=== PATIENT | female | born 1990 | race Caucasian/White ===

== ENCOUNTER 2020-01-29 21:59 | Inpatient (IN) ==
[2020-01-29] MEDS ORDERED: LACTATED RINGERS 500 ML IV PRN (22:21)
[2020-01-29] MEDS ORDERED: ONDANSETRON 4 MG/2 ML VIAL IV PRN (22:21)
[2020-01-29] MEDS ORDERED: MEPERIDINE 50 MG/1 ML VIAL IV PRN (22:21)
[2020-01-29] MEDS ORDERED: BUTORPHANOL 2 MG/ML VIAL IV PRN (22:21)
[2020-01-29 22:44] LABS: Basophils % 0.2 % (0.0-0.8); Eosinophils # 0.1 10*3/uL (0.0-0.87); Eosinophils % 0.9 % (0.00-10.9); Hematocrit 33.5 VOL% (35.7-47.0); Hemoglobin 11.1 GM/DL (12.0-16.0); Immature Granulocytes % 0.6 %; Immature Granulocytes Absolute 0.06 #; Lymphocytes # 1.8 10*3/uL (1.4-4.0); Lymphocytes % 19.5 % (21.3-54.2); Mean Corpuscular HGB Conc 33.1 GM/DL (32-36); Mean Corpuscular Volume 92.8 FL (87-102); Monocytes % 8.2 % (1.7-12.7); Neutrophils % 70.6 % (38.7-73.9); Platelet Count 203 T/CUMM (130-400); Red Blood Count 3.61 MC/CUMM (3.8-5.5); Red Cell Distribution Width 13.3 % (9.3-17.3); White Blood Count 9.3 T/CUMM (4-12)
[2020-01-29 23:13] LABS: Alanine Aminotransferase 12 U/L (13-56); Albumin 2.6 G/DL (3.4-5.0); Alkaline Phosphatase 124 U/L (45-117); Aspartate Amino Transferase 12 U/L (0-37); Bilirubin,Total < 0.39 MG/DL (0.2-1.0); Blood Urea Nitrogen 10 MG/DL (7-18); Calcium 8.8 MG/DL (8.5-10.1); Estimated Glom Filtration Rate 129 ML/MIN; Glucose 91 MG/DL (74-106); Osmolality,Calculated 271.8 MOS/KG (273-304); Total Protein 6.5 G/DL (6.4-8.3)
[2020-01-30] MEDS ORDERED: CLINDAMYCIN INJ 900 MG in PREMIX 1 EACH IV SCH (04:00)
[2020-01-30] MEDS: LACTATED RINGERS 1,000 ML IV SCH ×2 (04:20→04:30)
[2020-01-30] MEDS ORDERED: LACTATED RINGERS 1,000 ML IV ONE ×2 (08:30→09:20)
[2020-01-30] MEDS ORDERED: TERBUTALINE 1 MG/1 ML VIAL SUBCUT ONE ×2 (08:30→11:36)
[2020-01-30] MEDS ORDERED: CITRIC ACID/SODIUM CITRATE 30 ML UDCUP PO ONE (08:30)
[2020-01-30] MEDS ORDERED: FAMOTIDINE 20 MG/2 ML VIAL IV ONE (08:30)
[2020-01-30] MEDS ORDERED: TERBUTALINE 1 MG/1 ML VIAL ONE (08:32)
[2020-01-30] MEDS ORDERED: TRANEXAMIC ACID 1,000 MG/10 ML VIAL ONE (08:33)
[2020-01-30] MEDS ORDERED: miSOPROStoL 200 MCG TABLET ONE (08:33)
[2020-01-30] MEDS ORDERED: OXYTOCIN/LR 20 UNIT/1,000 ML BAG IV ONE ×2 (08:34→12:22)
[2020-01-30] MEDS ORDERED: CARBOPROST TROMETHAMINE 250 MCG/ML AMP IM ONE (08:34)
[2020-01-30] MEDS ORDERED: METHYLERGONOVINE 0.2 MG/1 ML AMP ONE (08:34)
[2020-01-30] MEDS ORDERED: ePHEDrine 50 MG/ML VIAL IV PRN (09:20)
[2020-01-30] MEDS ORDERED: diphenhydrAMINE 50 MG/1 ML VIAL IV PRN ×2 (09:20)
[2020-01-30] MEDS ORDERED: NALOXONE 0.4 MG/ML VIAL IV PRN (09:20)
[2020-01-30] MEDS ORDERED: fentaNYL 2 MCG/ROPIV 0.2% EPID 100 ML EPIDURAL SCH (09:30)
[2020-01-30] MEDS ORDERED: OXYTOCIN/LR 20 UNIT/1,000 ML BAG IV SCH (09:30)
[2020-01-30] MEDS ORDERED: LIDOCAINE MPF 2% /EPI 20 ML VIAL ONE (11:32)
[2020-01-30] MEDS ORDERED: PHENYLEPHRINE 1 MG/10 ML SYRINGE IV ONE (11:32)
[2020-01-30] MEDS ORDERED: OXYTOCIN 10 UNIT/ML VIAL ONE (11:47)
[2020-01-30 12:05] LABS: Cord Venous Blood HCO3 18.4 MMOL/L; Cord Venous Blood PCO2 55.4 MMHG; Cord Venous Blood PO2 22.6
[2020-01-30 12:18] LABS: Bilirubin,Urine Negative (Negative); Blood, Urine Negative (Negative); Glucose,Urine (UA) Negative (Negative); Ketones,Urine 5 mg/dL (Negative); Nitrite,Urine Negative (Negative); Protein,Urine Negative; Squamous Epithelial Cell,Urine Occasional /HPF (0-10); Urine Appearance CLEAR (Clear); Urine Color Straw (Yellow); Urine Specific Gravity 1.006 (1.001-1.035); Urine Urobilinogen < 2.0 EU/DL (0.2-1.0)
[2020-01-30] MEDS ORDERED: BENZOCAINE 20%/MENTHOL 0.5% SPRAY 56 GM CAN TOP PRN (12:22)
[2020-01-30] MEDS ORDERED: oxyCODONE/ACETAMINOPHEN 5-325 MG TABLET PO PRN (12:22)
[2020-01-30] MEDS ORDERED: ACETAMINOPHEN 325 MG TABLET PO PRN (12:22)
[2020-01-30] MEDS ORDERED: ONDANSETRON 4 MG/2 ML VIAL IV PRN (12:22)
[2020-01-30] MEDS ORDERED: MEASLES/MUMPS/RUBELLA VACCINE 0.5 ML VIAL SUBCUT ONE (12:22)
[2020-01-30] MEDS ORDERED: DIPH/TET/ACEL PERT BOOSTER VACCINE 0.5 ML VIAL IM ONE (12:22)
[2020-01-30] MEDS ORDERED: BISACODYL 10 MG SUPP RECTAL PRN (12:22)
[2020-01-30] MEDS ORDERED: LANOLIN 50% CREAM 0.3 OZ TUBE TOP PRN (12:22)
[2020-01-30] MEDS ORDERED: HYDROCORTISONE 2.5% RECTAL CREAM 30 GM TUBE TOP PRN (12:22)
[2020-01-30] MEDS ORDERED: WITCH HAZEL PADS 100/JAR TOP PRN (12:22)
[2020-01-30] MEDS ORDERED: RHO(D) IMMUNE GLOBULIN 300 MCG SYRINGE IM ONE (12:22)
[2020-01-30] MEDS ORDERED: MIDAZOLAM 2 MG/2 ML VIAL ONE (12:44)
[2020-01-30] MEDS ORDERED: ACETAMINOPHEN 500 MG TABLET PO PRN (13:30)
[2020-01-30] MEDS: KETOROLAC 30 MG/1 ML VIAL IV SCH ×2 (13:37→19:43)
[2020-01-30] MEDS: oxyCODONE/ACETAMINOPHEN 5-325 MG TABLET PO PRN ×2 (17:25→22:37)
[2020-01-30] MEDS: CLINDAMYCIN INJ 900 MG in PREMIX 1 EACH IV SCH (19:53)
[2020-01-30] MEDS: DOCUSATE SODIUM 100 MG CAPSULE PO SCH (20:25)
[2020-01-30] MEDS: SIMETHICONE CHEW 80 MG TABLET PO PRN (20:28)
[2020-01-31] MEDS: KETOROLAC 30 MG/1 ML VIAL IV SCH ×2 (01:27→08:08)
[2020-01-31] MEDS: CLINDAMYCIN INJ 900 MG in PREMIX 1 EACH IV SCH (04:52)
[2020-01-31] MEDS: SIMETHICONE CHEW 80 MG TABLET PO PRN ×3 (05:36→19:48)
[2020-01-31] MEDS: oxyCODONE/ACETAMINOPHEN 5-325 MG TABLET PO PRN ×4 (05:36→22:09)
[2020-01-31 06:40] LABS: Basophils % 0.1 % (0.0-0.8); Eosinophils % 0.3 % (0.00-10.9); Hematocrit 27.1 VOL% (35.7-47.0); Immature Granulocytes % 0.3 %; Immature Granulocytes Absolute 0.03 #; Lymphocytes % 10.6 % (21.3-54.2); Mean Corpuscular HGB Conc 32.1 GM/DL (32-36); Mean Corpuscular Volume 93.1 FL (87-102); Mean Platelet Volume 10.5 FL (9.6-12.0); Neutrophils % 80.7 % (38.7-73.9); Red Blood Count 2.91 MC/CUMM (3.8-5.5); Red Cell Distribution Width 13.7 % (9.3-17.3)
[2020-01-31 06:44] LABS: Hemoglobin 8.7 GM/DL (12.0-16.0); Platelet Count 143 T/CUMM (130-400)
[2020-01-31 07:05] LABS: Anisocytosis 2+; Platelet Estimate Adequate
[2020-01-31 07:06] LABS: Spherocytes Few
[2020-01-31] MEDS: MAGNESIUM HYDROXIDE SUSP 30 ML UDCUP PO PRN ×2 (08:08→19:48)
[2020-01-31] MEDS: FERROUS SULFATE 325 MG TABLET PO SCH ×3 (08:08→21:38)
[2020-01-31] MEDS: DOCUSATE SODIUM 100 MG CAPSULE PO SCH ×3 (08:08→21:38)
[2020-01-31] MEDS: IBUPROFEN 800 MG TABLET PO PRN ×3 (10:59→22:08)
[2020-01-31] MEDS ORDERED: MAGNESIUM CITRATE 300 ML BOTTLE PO PRN (23:10)
[2020-02-01] MEDS: IBUPROFEN 800 MG TABLET PO PRN (05:37)
[2020-02-01] MEDS: oxyCODONE/ACETAMINOPHEN 5-325 MG TABLET PO PRN (05:38)
[2020-02-01 08:15] VITALS: BP 90/53
[2020-02-01] MEDS: FERROUS SULFATE 325 MG TABLET PO SCH (08:53)
[2020-02-01] MEDS: SIMETHICONE CHEW 80 MG TABLET PO PRN (08:53)
[2020-02-01] MEDS: DOCUSATE SODIUM 100 MG CAPSULE PO SCH (08:53)
== END 2020-02-01 12:10 | disposition home or self-care (01) | DRG 788 ==
LOC: N.LDOUT 21:59 → N.LD 22:01 → N.OB 01-30 15:49
PROVIDERS: ADMIT Specialist; ATTEND Specialist
PROC: LDCSECT (ICD-10-PCS; 2020-01-30 11:30)

== ENCOUNTER 2020-02-13 15:49 | Inpatient (IN) ==
[2020-02-13] MEDS ORDERED: ACETAMINOPHEN 500 MG TABLET PO PRN (16:20)
[2020-02-13] MEDS ORDERED: VANCOMYCIN INJ 1,250 MG in SODIUM CHLORIDE 0.9% 250 ML IV SCH (16:30)
[2020-02-13] MEDS: LACTATED RINGERS 1,000 ML IV SCH (16:40)
[2020-02-13 16:41] LABS: Basophils % 0.1 % (0.0-0.8); Eosinophils # 0.2 10*3/uL (0.0-0.87); Eosinophils % 1.9 % (0.00-10.9); Hematocrit 31.2 VOL% (35.7-47.0); Hemoglobin 10.1 GM/DL (12.0-16.0); Immature Granulocytes % 0.7 %; Immature Granulocytes Absolute 0.08 #; Lymphocytes # 0.6 10*3/uL (1.4-4.0); Lymphocytes % 4.6 % (21.3-54.2); Mean Corpuscular HGB Conc 32.4 GM/DL (32-36); Mean Corpuscular Volume 91.8 FL (87-102); Mean Platelet Volume 8.9 FL (9.6-12.0); Monocytes % 3.2 % (1.7-12.7); Neutrophils % 89.5 % (38.7-73.9); Platelet Count 428 T/CUMM (130-400); Red Cell Distribution Width 13.6 % (9.3-17.3); White Blood Count 11.9 T/CUMM (4-12)
[2020-02-13] MEDS ORDERED: VANCOMYCIN INJ 1,250 MG in SODIUM CHLORIDE 0.9% 250 ML IV ONE (17:00)
[2020-02-13 17:01] LABS: Albumin 2.6 G/DL (3.4-5.0); Bilirubin,Total 0.4 MG/DL (0.2-1.0); Calcium 8.9 MG/DL (8.5-10.1); Osmolality,Calculated 272.8 MOS/KG (273-304); Total Protein 7.3 G/DL (6.4-8.3)
[2020-02-13 17:56] LABS: Band Neutrophils 2 % (0-10); Eosinophils 1 % (0-10); Lymphocytes 5 % (20-55); Platelet Estimate Normal; Segmented Neutrophils 91 % (50-85); Total Cells Counted 100
[2020-02-13 21:24] LABS: Bacteria,Urine Occasional /HPF (Few); Bilirubin,Urine Negative (Negative); Blood, Urine Moderate mg/dL (Negative); Glucose,Urine (UA) Negative (Negative); Hyaline Casts,Urine 1 /LPF (0-3); Ketones,Urine Negative (Negative); Nitrite,Urine Negative (Negative); Protein,Urine Negative; RBC,Urine <1 /HPF (0-4); Urine Appearance CLEAR (Clear); Urine Color Straw (Yellow); Urine Specific Gravity 1.003 (1.001-1.035); Urine Urobilinogen < 2.0 EU/DL (0.2-1.0); WBC,Urine 2 /HPF (0-6)
[2020-02-14] MEDS: IBUPROFEN 800 MG TABLET PO PRN ×3 (04:38→20:56)
[2020-02-14] MEDS: VANCOMYCIN INJ 1,250 MG in SODIUM CHLORIDE 0.9% 250 ML IV SCH ×2 (04:38→17:20)
[2020-02-14] MEDS: LACTATED RINGERS 1,000 ML IV SCH ×3 (06:32→20:55)
[2020-02-15] MEDS: VANCOMYCIN INJ 1,250 MG in SODIUM CHLORIDE 0.9% 250 ML IV SCH (04:51)
[2020-02-15 07:29] VITALS: BP 85/51
== END 2020-02-15 12:12 | disposition home or self-care (01) | DRG 776 ==
LOC: N.OBOUT 15:49 → N.OB 15:52
PROVIDERS: ADMIT Specialist; ATTEND Specialist